=== PATIENT | male | born 1955 | race Caucasian/White ===

== ENCOUNTER 2016-08-28 11:55 | Emergency (ER) | payer MEDICAID ==
[2016-08-28] MEDS ORDERED: HYDROMORPHONE HCL 1 MG/ML CPJ IVP ONE ×2 (12:31→17:22)
[2016-08-28] MEDS ORDERED: CLONIDINE HCL 0.1 MG TABLET PO ONE ×2 (12:31→14:04)
[2016-08-28] MEDS ORDERED: PROMETHAZINE HCL 25 MG/ML VIAL IVP ONE (12:31)
[2016-08-28 12:54] LABS: HEMATOCRIT 51.6 % (42.0-52.0); HEMOGLOBIN 18.2 gm/dl (14.0-18.0); MEAN CELL VOLUME 88.8 fl (81-97); MEAN CORPUSCULAR HEMOGLOBIN 31.3 pg (27-33); MEAN CORPUSCULAR HGB CONC 35.3 g/dl (32-36); MEAN PLATELET VOLUME 9.6 fl (7.4-10.4); PLATELET COUNT 260 K/uL (130-400); RED BLOOD COUNT 5.81 M/uL (4.40-5.70); RED CELL DISTRIBUTION WIDTH 13.3 % (11.5-14.5); WHITE BLOOD COUNT W/O DIFF 9.6 K/uL (4.2-12.2)
[2016-08-28 13:09] LABS: ALB/GLOB RATIO 1.5 (1.1-1.8); ALBUMIN 4.8 gm/dL (3.5-5.0); ALKALINE PHOSPHATASE 93 U/L (38-126); ALT/SGPT 56 U/L (21-72); ANION GAP 13.8 (7-16); AST/SGOT 57 U/L (17-59); BILIRUBIN,TOTAL 1.72 mg/dL (0.2-1.3); BLOOD UREA NITROGEN 9 mg/dL (9-20); CARBON DIOXIDE 25.2 mmol/L (22-30); CREATININE 0.7 mg/dL (0.66-1.25); EST GLOMERULAR FILTRATION RATE > 60 ml/min; GLUCOSE,RANDOM 269 mg/dL (70-110); TOTAL PROTEIN 8.1 gm/dL (6.3-8.2)
--- NOTE | 2016-08-28 13:37 | Emergency Department Record ---
History of Present Illness - General Chief Complaint: Abdominal Pain Stated Complaint: RUQ PAIN Time Seen by Provider: 08/28/16 12:19 Source: Patient Mode of Arrival: Ambulatory Limitations: No limitations - History of Present Illness Initial Comments: pt states he has ruq pain, abd pain, r flank pain all morning. he was dxd w cholelithiasis last year in [place] and he thinks that is what it is. he was here last fall with a headache and had htn. he has not followed up with a family dr as he doesnt have one. today he incidentally had extremely hi bp MD Complaint: Abdominal pain, Flank pain Onset/Timin -: Hour(s) Location: RUQ Radiation: None Severity: Moderate Quality: Stabbing Consistency: Intermittent Improves With: Nothing Worsens With: Nothing Associated Symptoms: Denies other symptoms - Related Data Home Medications Medication Instructions Recorded Confirmed Last Taken No Home Med [NO HOME MEDS] 07/10/16 08/28/16 Unknown Allergies Allergy/AdvReac Type Severity Reaction Status Date / Time No Known Drug Allergies Allergy Verified 07/10/16 01:50 Travel Screening - Travel/Exposure Within Last 30 Days Have you traveled within the last 30 days?: No - Travel/Exposure Within Last Year Have you traveled outside the [place] in the last year?: No - Additonal Travel Details Have you been exposed to anyone with a communicable illness?: No - Travel Symptoms Symptom Screening: None Review of Systems Reviewed: No additional complaints except as noted below Constitutional: Reports: As per HPI. Denies: Chills, Fever, Malaise, Night sweats, Weakness, Weight change Eyes: Reports: As per HPI. Denies: Eye discharge, Eye pain, Photophobia, Vision change ENT: Reports: As per HPI. Denies: Congestion, Dental pain, Ear pain, Epistaxis , Hearing loss, Throat pain Respiratory: Reports: As per HPI. Denies: Cough, Dyspnea, Hemoptysis, Stridor, Wheezes Cardiovascular: Reports: As per HPI. Denies: Arrhythmia, Chest pain, Dyspnea on exertion, Edema, Murmurs, Orthopnea, Palpitations, Paroxysmal nocturnal dyspnea, Rheumatic Fever, Syncope Endocrine: Reports: As per HPI. Denies: Fatigue, Heat or cold intolerance, Polydipsia, Polyuria Gastrointestinal: Reports: As per HPI. Denies: Abdominal pain, Constipation, Diarrhea, Hematemesis, Hematochezia, Melena, Nausea, Vomiting Genitourinary: Reports: As per HPI. Denies: Dysuria, Frequency, Hematuria, Incontinence, Retention, Testicular pain, Testicular mass, Urgency Musculoskeletal: Reports: As per HPI. Denies: Arthralgia, Back pain, Gout, Joint swelling, Myalgia, Neck pain Skin: Reports: As per HPI. Denies: Bruising, Change in color, Change in hair/ nails, Lesions, Pruritus, Rash Neurological: Reports: As per HPI. Denies: Abnormal gait, Confusion, Headache, Numbness, Paresthesias, Seizure, Tingling, Tremors, Vertigo, Weakness Psychiatric: Reports: As per HPI. Denies: Anxiety, Auditory hallucinations, Depression, Homicidal thoughts, Suicidal thoughts, Visual hallucinations Hematological/Lymphatic: Reports: As per HPI. Denies: Anemia, Blood Clots, Easy bleeding, Easy bruising, Swollen glands Past Medical History - SOCIAL HISTORY Smoking Status: Never smoker Alcohol Use: Occassional Drug Use: None - RESPIRATORY Hx Respiratory Disorders: Yes Hx Asthma: Yes - CARDIOVASCULAR Hx Cardio Disorders: No - NEURO Hx Neuro Disorders: No - GI Hx GI Disorders: Yes Hx Hepatitis/Jaundice: Yes (Hep C) Hx Ulcer: Yes (hx) - Hx Genitourinary Disorders: No - ENDOCRINE Hx Endocrine Disorders: No - MUSCULOSKELETAL Hx Musculoskeletal Disorders: No - PSYCH Hx Psych Problems: Yes Hx Anxiety: Yes Hx Depression: Yes - HEMATOLOGY/ONCOLOGY Hx Hematology/Oncology Disorders: No Family Medical History Any Significant Family History?: No Hx Cancer: Mother Hx Diabetes: Grandparents Hx Heart Disease: Father Hx HTN: Mother Hx Resp Disorders: Brother/Sister Physical Exam - General General Appearance: Alert, Oriented x3, Cooperative, No acute distress, Moderate distress - Head Head exam: Normal inspection - Eye Eye exam: Normal appearance, PERRL, EOMI Pupils: Normal accommodation - ENT ENT exam: Normal exam, Mucous membranes moist, Normal external ear exam, Normal orophraynx Ear exam: Normal external inspection. negative: External canal tenderness Nasal Exam: Normal inspection. negative: Discharge, Sinus tenderness Mouth exam: Normal external inspection, Tongue normal Teeth exam: Normal inspection. negative: Dental caries Throat exam: Normal inspection. negative: Tonsillar erythema, Tonsillar exudate - Neck Neck exam: Normal inspection, Full ROM. negative: Tenderness - Respiratory Respiratory exam: Normal lung sounds bilaterally. negative: Respiratory distress - Cardiovascular Cardiovascular Exam: Regular rate, Normal rhythm, Normal heart sounds - GI/Abdominal GI/Abdominal exam: Soft, Normal bowel sounds, Tenderness (ruq and mid abd and r flank) - Rectal Rectal exam: Deferred - exam: Deferred - Extremities Extremities exam: Normal inspection, Full ROM, Normal capillary refill. negative: Tenderness - Back Back exam: Reports: Normal inspection, Full ROM. Denies: Muscle spasm, Rash noted, Tenderness - Neurological Neurological exam: Alert, CN II-XII intact, Normal gait, Oriented X3 - Psychiatric Psychiatric exam: Normal affect, Normal mood - Skin Skin exam: Dry, Intact, Normal color, Warm Course Vital Signs 08/28/16 12:07 Temperature 98.0 F Pulse Rate 68 Respiratory 20 Rate Blood Pressure 226/120 Pulse Ox 97 - Reevaluation(s) Reevaluation #1: 08/28/16 15:16 pt is better as well as bp. d/w dr szymanski who is going to direct admit pt. Medical Decision Making - Management Options MDM Management: Additional Work-up Planned (e.g. ADM/Transfer/OP Study) - Data Complexity MDM Data: Labs Ordered and/or Reviewed, X-Ray Ordered and/or Reviewed - Lab Data Result diagrams: 08/28/16 12:40 08/28/16 12:40 Lab Results 08/28/16 08/28/16 Range/Units 12:40 12:40 WBC 9.6 (4.2-12.2) K/uL RBC 5.81 H (4.40-5.70) M/uL Hgb 18.2 H (14.0-18.0) gm/dl Hct 51.6 (42.0-52.0) % MCV 88.8 (81-97) fl MCH 31.3 (27-33) pg MCHC 35.3 (32-36) g/dl RDW 13.3 (11.5-14.5) % Plt Count 260 (130-400) K/uL MPV 9.6 (7.4-10.4) fl Neutrophils % 87.0 H (47-80) % Lymphocytes % 7.0 L (16-45) % Monocytes % 6.0 (0-9) % Eosinophils % Not Reportable Basophils % Not Reportable Sodium 136 (136-145) mmol/L Potassium 4.8 (3.5-5.1) mmol/L Chloride 97 L (98-107) mmol/L Carbon Dioxide 25.2 (22-30) mmol/L Anion Gap 13.8 (7-16) BUN 9 (9-20) mg/dL Creatinine 0.7 (0.66-1.25) mg/dL Estimated GFR > 60 ml/min Random Glucose 269 H (70-110) mg/dL Calcium 9.5 (8.5-10.1) mg/dL Total Bilirubin 1.72 H (0.2-1.3) mg/dL AST 57 (17-59) U/L ALT 56 (21-72) U/L Alkaline Phosphatase 93 (38-126) U/L Total Protein 8.1 (6.3-8.2) gm/dL Albumin 4.8 (3.5-5.0) gm/dL Globulin 3.3 (1.4-4.8) gm/dL Albumin/Globulin Ratio 1.5 (1.1-1.8) - Radiology Data Radiology results: Report reviewed, Image reviewed Disposition Disposition: Discharge Clinical Impression: Cholecystitis Disposition: Acute Care Hospital Transfer Transfer To: [facility] Reason For Transfer: surgeons request and needs ercp Accepting Physician: dr szymanski Time Discussed w/Accepting Physician: 15:18 Forms: Patient Portal Access
--- NOTE | 2016-08-28 15:20 | Emergency Department Record ---
History of Present Illness - General Chief Complaint: Abdominal Pain Stated Complaint: RUQ PAIN Time Seen by Provider: 08/28/16 12:19 Source: Patient Mode of Arrival: Ambulatory Limitations: No limitations - History of Present Illness MD Complaint: Abdominal pain, Flank pain Onset/Timin -: Hour(s) Location: RUQ Radiation: None Severity: Moderate Quality: Stabbing Consistency: Intermittent Improves With: Nothing Worsens With: Nothing Associated Symptoms: Denies other symptoms - Related Data Home Medications Medication Instructions Recorded Confirmed Last Taken No Home Med [NO HOME MEDS] 07/10/16 08/28/16 Unknown Allergies Allergy/AdvReac Type Severity Reaction Status Date / Time No Known Drug Allergies Allergy Verified 07/10/16 01:50 Travel Screening - Travel/Exposure Within Last 30 Days Have you traveled within the last 30 days?: No - Travel/Exposure Within Last Year Have you traveled outside the [place] in the last year?: No - Additonal Travel Details Have you been exposed to anyone with a communicable illness?: No - Travel Symptoms Symptom Screening: None Review of Systems Constitutional: Reports: As per HPI. Denies: Chills, Fever, Malaise, Night sweats, Weakness, Weight change Eyes: Reports: As per HPI. Denies: Eye discharge, Eye pain, Photophobia, Vision change ENT: Reports: As per HPI. Denies: Congestion, Dental pain, Ear pain, Epistaxis , Hearing loss, Throat pain Respiratory: Reports: As per HPI. Denies: Cough, Dyspnea, Hemoptysis, Stridor, Wheezes Cardiovascular: Reports: As per HPI. Denies: Arrhythmia, Chest pain, Dyspnea on exertion, Edema, Murmurs, Orthopnea, Palpitations, Paroxysmal nocturnal dyspnea, Rheumatic Fever, Syncope Endocrine: Reports: As per HPI. Denies: Fatigue, Heat or cold intolerance, Polydipsia, Polyuria Gastrointestinal: Reports: As per HPI. Denies: Abdominal pain, Constipation, Diarrhea, Hematemesis, Hematochezia, Melena, Nausea, Vomiting Genitourinary: Reports: As per HPI. Denies: Dysuria, Frequency, Hematuria, Incontinence, Retention, Testicular pain, Testicular mass, Urgency Musculoskeletal: Reports: As per HPI. Denies: Arthralgia, Back pain, Gout, Joint swelling, Myalgia, Neck pain Skin: Reports: As per HPI. Denies: Bruising, Change in color, Change in hair/ nails, Lesions, Pruritus, Rash Neurological: Reports: As per HPI. Denies: Abnormal gait, Confusion, Headache, Numbness, Paresthesias, Seizure, Tingling, Tremors, Vertigo, Weakness Psychiatric: Reports: As per HPI. Denies: Anxiety, Auditory hallucinations, Depression, Homicidal thoughts, Suicidal thoughts, Visual hallucinations Hematological/Lymphatic: Reports: As per HPI. Denies: Anemia, Blood Clots, Easy bleeding, Easy bruising, Swollen glands Past Medical History - SOCIAL HISTORY Smoking Status: Never smoker Alcohol Use: Occassional Drug Use: None - RESPIRATORY Hx Respiratory Disorders: Yes Hx Asthma: Yes - CARDIOVASCULAR Hx Cardio Disorders: No - NEURO Hx Neuro Disorders: No - GI Hx GI Disorders: Yes Hx Hepatitis/Jaundice: Yes (Hep C) Hx Ulcer: Yes (hx) - Hx Genitourinary Disorders: No - ENDOCRINE Hx Endocrine Disorders: No - MUSCULOSKELETAL Hx Musculoskeletal Disorders: No - PSYCH Hx Psych Problems: Yes Hx Anxiety: Yes Hx Depression: Yes - HEMATOLOGY/ONCOLOGY Hx Hematology/Oncology Disorders: No Family Medical History Any Significant Family History?: No Hx Cancer: Mother Hx Diabetes: Grandparents Hx Heart Disease: Father Hx HTN: Mother Hx Resp Disorders: Brother/Sister Physical Exam - General Limitations: No limitations Course Vital Signs 08/28/16 08/28/16 08/28/16 12:07 13:52 14:29 Temperature 98.0 F Pulse Rate 68 Pulse Rate [ 68 65 Pulse Ox Probe] Respiratory 20 16 16 Rate Blood Pressure 226/120 Blood Pressure 210/122 203/112 [Left Arm] Pulse Ox 97 97 97 Medical Decision Making - Lab Data Result diagrams: 08/28/16 12:40 08/28/16 12:40 Lab Results 08/28/16 08/28/16 Range/Units 12:40 12:40 WBC 9.6 (4.2-12.2) K/uL RBC 5.81 H (4.40-5.70) M/uL Hgb 18.2 H (14.0-18.0) gm/dl Hct 51.6 (42.0-52.0) % MCV 88.8 (81-97) fl MCH 31.3 (27-33) pg MCHC 35.3 (32-36) g/dl RDW 13.3 (11.5-14.5) % Plt Count 260 (130-400) K/uL MPV 9.6 (7.4-10.4) fl Neutrophils % 87.0 H (47-80) % Lymphocytes % 7.0 L (16-45) % Monocytes % 6.0 (0-9) % Eosinophils % Not Reportable Basophils % Not Reportable Sodium 136 (136-145) mmol/L Potassium 4.8 (3.5-5.1) mmol/L Chloride 97 L (98-107) mmol/L Carbon Dioxide 25.2 (22-30) mmol/L Anion Gap 13.8 (7-16) BUN 9 (9-20) mg/dL Creatinine 0.7 (0.66-1.25) mg/dL Estimated GFR > 60 ml/min Random Glucose 269 H (70-110) mg/dL Calcium 9.5 (8.5-10.1) mg/dL Total Bilirubin 1.72 H (0.2-1.3) mg/dL AST 57 (17-59) U/L ALT 56 (21-72) U/L Alkaline Phosphatase 93 (38-126) U/L Total Protein 8.1 (6.3-8.2) gm/dL Albumin 4.8 (3.5-5.0) gm/dL Globulin 3.3 (1.4-4.8) gm/dL Albumin/Globulin Ratio 1.5 (1.1-1.8) Disposition Disposition: Transfer Clinical Impression: Cholecystitis Hypertension Qualifiers: Hypertension type: essential hypertension Qualified Code(s): I10 - Essential ( primary) hypertension Disposition: Acute Care Hospital Transfer Transfer To: [facility] Reason For Transfer: surgeons request, needs ercp Accepting Physician: deppen Time Discussed w/Accepting Physician: 15:20 Forms: Patient Portal Access
--- NOTE | 2016-08-30 12:24 | ULTRASOUND REPORT ---
EXAM: ULTRASOUND OF THE ABDOMEN COMPLETE HISTORY: RIGHT UPPER QUADRANT ABDOMINAL PAIN. RIGHT FLANK PAIN. TECHNIQUE: Routine ultrasound examination of the abdomen was performed. Comparison: None. FINDINGS: The pancreatic head and tail are obscured by overlying bowel gas. The pancreatic body is without focal abnormality. The abdominal aorta is mildly atherosclerotic, but without focal aneurysmal dilatation. The inferior vena cava is patent. The liver is homogeneous in echotexture and there is no intra or extrahepatic biliary ductal dilatation with the common hepatic duct measuring 5 mm. The portal vein appears patent. There are several gallstones present. Two of these measure 2 cm and are mobile while the 1.5 cm stone in the gallbladder neck is not mobile. No gallbladder wall thickening or pericholecystic fluid is seen though there is a reported positive sonographic Cruz's sign. The spleen is not enlarged and is homogeneous in echotexture. Screening evaluation of the kidneys does not demonstrate hydronephrosis nor mass with the right kidney measuring 12.2 cm in length and the left kidney measuring 11.1 cm in length. IMPRESSION: 1. CHOLELITHIASIS WITH A 1.5 CM CALCULUS IN THE GALLBLADDER NECK APPEARING NONMOBILE AND THERE IS A POSITIVE SONOGRAPHIC CRUZ'S SIGN. ACUTE CHOLECYSTITIS IS POSSIBLE THOUGH THERE IS NO VISUALIZED GALLBLADDER WALL THICKENING OR PERICHOLECYSTIC FLUID. 2. NONVISUALIZATION OF THE PANCREATIC HEAD AND TAIL DUE TO OVERLYING BOWEL GAS. JOB NUMBER: [id number] [facility]
== END 2016-08-28 18:55 | disposition short-term general hospital (02) ==
LOC: ER 11:55
DX: K81.0 Acute cholecystitis (principal); I10 Essential (primary) hypertension
CPT/HCPCS: 99285 ×2; 96376; 96374; 96375; 80053; 85027; 76700; J1170; J2550

== ENCOUNTER 2017-03-18 09:43 | Day surgery (SDC) | payer MEDICAID ==
[2017-03-18] MEDS ORDERED: PROPOFOL 10 MG/ML VIAL IV ONE (14:00)
[2017-03-18] MEDS ORDERED: LIDOCAINE 2% MDV (20MG/ML) 20ML VIAL IV ONE (14:00)
[2017-03-18] MEDS ORDERED: MIDAZOLAM HCL 2MG/2ML VIAL IV ONE (14:00)
--- NOTE | 2017-03-20 13:00 | Operative Note ---
DATE OF SURGERY: 03/18/2017 OPERATION: COLONOSCOPY to the cecum with cold biopsy forceps polypectomy x2. INDICATION: Colorectal cancer screening. ANESTHESIA: Intravenous sedation was administered by the department of anesthesiology and included Diprivan titrated to effect. PROCEDURE: Following informed consent from this alert individual including a discussion of the risks and benefits of the procedure and an opportunity for the patient to ask questions, the patient was in the left lateral decubitus position. A digital rectal examination was performed. There was some retained stool noted. No discrete mass was palpable. Following this, the Olympus [id number] video colonoscope was inserted into the rectum without resistance. The rectal mucosa as visualized had a normal appearance with normal folds and distensibility. The colonoscope was advanced up through the colon to the level of the cecum without much difficulty. Throughout the bowel the mucosa appeared normal, the folds were fairly normal, and the bowel was fairly well distensible. However, there was extensive diverticulosis noted, predominantly in the left colon but also noted in the right colon. The cecum was defined by noting the appendiceal orifice and ileocecal valve. There were 2 diminutive polyps noted at the appendiceal orifice each removed with application of cold biopsy forceps. After biopsy, the endoscope was then withdrawn through the bowel and it was reevaluated slowly upon withdrawal. No additional polyps were seen. Again diverticulosis was noted throughout. Retroflexion in the rectum revealed retained stool. Washing and suctioning was employed vigorously and as best visualized, no mucosal changes were noted in the rectum. The endoscope was straightened and removed. The patient tolerated the procedure well and was returned to the recovery area in stable condition. IMPRESSION: 1. Two 3 mm appendiceal orifice polyps noted removed with biopsy forceps. 2. Bermudez diverticulosis. 3. Fair prep. RECOMMENDATIONS: At this point I would repeat the colonoscopy in 5 years' time or sooner if problems arise. Followup will otherwise be with Josselyn Alonzo. As always, thank you for allowing me to participate in the care of your patient. CC: GABRIELLE Fonseca
== END 2017-03-18 12:10 | disposition home or self-care (01) ==
LOC: HOP 09:43
PROVIDERS: ATTEND Internal Medicine Gastroenterology
DX: Z12.11 Encounter for screening for malignant neoplasm of colon (principal); K57.30 Diverticulosis of large intestine without perforation or abscess without bleeding; K38.8 Other specified diseases of appendix; K63.5 Polyp of colon; Z86.19 Personal history of other infectious and parasitic diseases